=== PATIENT | male | born 1975 | race Caucasian/White ===

== ENCOUNTER 2016-10-19 23:26 | Emergency (ER) | payer OTHER ==
[~2016-10-19] VITALS: Ht 172.7 cm; Wt 99.8 kg
[~2016-10-19 23:26] MED LIST: ATARAX,VISTARIL50 MG PO; ATARAX25 MG PO; BACTRIM DS 8001 TA1 PO; CARBIDOPA/LEVOD1 TA1 PO; CEPHALEXIN500 M1 PO; FLEXERIL10 MG PO; HYDROCODONE BIT1 T11 PO; LEVAQUIN750 M1 PO; METHOCARBAMOL750 M1 PO; NAPROSYN500 MG PO; NKHM; NORCO 325 MG-101 TAB PO; OMNICEF300 MG PO; OXY IR5 MG PO; PREDNISONE10 MG PO
[2016-10-20 00:43] LABS: BASO % 0.2 % (0.0-1.0); EOS % 0.2 % (1.0-4.0); HEMATOCRIT 46.3 % (42.0-52.0); HEMOGLOBIN 15.6 g/dl (14.0-18.0); IG # 0.1 10*3/uL (0.0-0.1); LYMPH # 1.5 10*3/uL (1.3-4.4); MEAN CELL VOLUME 91.1 fl (80.0-94.0); MEAN CORPUSCULAR HGB 30.7 pg (27.0-31.0); MEAN CORPUSCULAR HGB CONC 33.7 g/dl (33.0-37.0); MEAN PLATELET VOLUME 9.1 fl (9.6-12.3); MONO # 1.1 10*3/uL (0.1-1.0); MONO % 6.3 % (3.0-9.0); NEUT # 13.9 10*3/uL (2.3-7.9); NEUT % 83.6 % (47.0-73.0); PLATELET COUNT AUTOMATED 184 10*3/uL (130-400); RED BLOOD COUNT 5.08 10*6/uL (4.50-5.90); RED CELL DISTRI WIDTH 13.2 % (0-14.5); WHITE BLOOD COUNT 16.6 10*3/uL (4.8-10.8)
[2016-10-20 01:00] LABS: BUN 17 mg/dl (7-24); CARBON DIOXIDE 26 mmol/L (21-32); CHLORIDE 108 mmol/L (98-107); EST GLOM FILT AFRICAN AMERICAN > 60 ml/min; GLUCOSE 108 mg/dL (65-99); POTASSIUM 4.2 mmol/L (3.5-5.1); SODIUM 145 mmol/L (136-145); TROPONIN I < 0.015 ng/ml (<0.5)
== END 2016-10-20 01:07 | disposition home or self-care (01) ==
LOC: ED 23:26
PROVIDERS: Emergency Medicine Emergency Medical Services
DX: T40.1X1A Poisoning by heroin, accidental (unintentional), initial encounter (principal); F17.200 Nicotine dependence, unspecified, uncomplicated; F14.10 Cocaine abuse, uncomplicated; F11.10 Opioid abuse, uncomplicated; Z91.038 Other insect allergy status; Y92.9 Unspecified place or not applicable

== ENCOUNTER 2017-06-16 15:56 | Emergency (ER) | payer OTHER ==
[2017-06-16 16:29] LABS: BASO % 0.2 % (0.0-1.0); EOS # 0.1 10*3/uL (0.0-0.4); EOS % 1.3 % (1.0-4.0); HEMATOCRIT 40.6 % (42.0-52.0); HEMOGLOBIN 14.4 g/dl (14.0-18.0); LYMPH # 2.2 10*3/uL (1.3-4.4); LYMPH % 24.2 % (27.0-41.0); MEAN CELL VOLUME 88.8 fl (80.0-94.0); MEAN CORPUSCULAR HGB 31.5 pg (27.0-31.0); MEAN CORPUSCULAR HGB CONC 35.5 g/dl (33.0-37.0); MEAN PLATELET VOLUME 9.2 fl (9.6-12.3); MONO # 0.6 10*3/uL (0.1-1.0); MONO % 7.1 % (3.0-9.0); NEUT % 66.9 % (47.0-73.0); PLATELET COUNT AUTOMATED 157 10*3/uL (130-400); RED BLOOD COUNT 4.57 10*6/uL (4.50-5.90); RED CELL DISTRI WIDTH 13.2 % (0-14.5)
[2017-06-16 16:38] LABS: ACT PARTIAL THROMBO TIME 23.1 SECONDS (20.8-31.5)
[2017-06-16 17:06] LABS: ALBUMIN 3.6 gm/dl (3.1-4.5); ALKALINE PHOSPHATASE 80 U/L (45-117); BUN 13 mg/dl (7-24); CHLORIDE 103 mmol/L (98-107); CKMB 4.2 ng/ml (0.5-3.6); CPK 312 U/L (39-308); CREATININE 1.15 mg/dL (0.70-1.30); LIPASE 165 U/L (73-393); MAGNESIUM 1.9 mg/dL (1.5-2.1); POTASSIUM 3.2 mmol/L (3.5-5.1); SGOT/AST 41 IU/L (3-35); SGPT/ALT 71 U/L (12-78); SODIUM 135 mmol/L (136-145); TOTAL PROTEIN 7.2 gm/dL (6.4-8.2)
[2017-06-16 17:13] LABS: ETHYL ALCOHOL < 3.0 mg/dl (<3); TROPONIN I < 0.015 ng/ml (<0.045)
[2017-06-16 17:15] LABS: ACETAMINOPHEN (TYLENOL) < 2.0 ug/ml (10-30)
[2017-06-16 18:43] LABS: BILIRUBIN NEGATIVE (NEGATIVE); BLOOD NEGATIVE (NEGATIVE); CLARITY SL CLOUDY (CLEAR); COLOR YELLOW (YELLOW); GLUCOSE NEGATIVE (NEGATIVE); KETONE NEGATIVE (NEGATIVE); LEUKO ESTERASE NEGATIVE (NEGATIVE); NITRITE NEGATIVE (NEGATIVE); PH 5.5 (5.0-9.0); SPECIFIC GRAVITY >= 1.030 (1.005-1.030)
[2017-06-16 18:51] LABS: BACTERIA 1+
[2017-06-16 18:52] LABS: MUCOUS 1+; URINE AMPHETAMINES < 1000 (1000ng/ml); URINE BARBITURATES < 200 (200ng/ml); URINE BENZODIAZEPINES < 200 (200ng/ml); URINE CANNABINOIDS (THC) > 50 (50ng/ml); URINE COCAINE > 300 (300ng/ml); URINE METHADONE < 300 (300ng/ml); URINE OPIATES < 300 (300ng/ml)
[2017-06-16 18:53] LABS: URINE PHENCYCLIDINE < 25 (25ng/ml)
[2017-06-16] MEDS ORDERED: DUONEB 3 MG/3 ML3 M1 INH (21:06)
[2017-06-16] MEDS ORDERED: PROAIR HFA8.5 GM INH (21:14)
[2017-06-16] MEDS ORDERED: ZITHROMAX250 MG PO (21:14)
[2017-06-16] MEDS ORDERED: PREDNISONE20 M1 PO (21:15)
== END 2017-06-16 23:08 | disposition home or self-care (01) ==
LOC: ED 15:56
PROVIDERS: Emergency Medicine
DX: R41.82 Altered mental status, unspecified (principal); J44.1 Chronic obstructive pulmonary disease with (acute) exacerbation; F17.200 Nicotine dependence, unspecified, uncomplicated; F12.10 Cannabis abuse, uncomplicated; F14.10 Cocaine abuse, uncomplicated; Z91.030 Bee allergy status

== ENCOUNTER 2017-11-09 09:51 | Emergency (ER) | payer OTHER ==
[~2017-11-09] VITALS: Ht 175.2 cm; Wt 111.1 kg
[~2017-11-09 09:51] MED LIST changes: +DUONEB 3 MG/3 ML3 M1 INH; +PREDNISONE20 M1 PO; +PROAIR HFA8.5 GM INH; +ZITHROMAX250 MG PO
[2017-11-09 10:34] LABS: BASO % 0.2 % (0.0-1.0); EOS # 0.2 10*3/uL (0.0-0.4); EOS % 2.4 % (1.0-4.0); HEMATOCRIT 46.8 % (42.0-52.0); HEMOGLOBIN 16.4 g/dl (14.0-18.0); LYMPH # 1.6 10*3/uL (1.3-4.4); LYMPH % 18.9 % (27.0-41.0); MEAN CELL VOLUME 87.8 fl (80.0-94.0); MEAN CORPUSCULAR HGB 30.8 pg (27.0-31.0); MEAN PLATELET VOLUME 9.7 fl (9.6-12.3); MONO # 0.7 10*3/uL (0.1-1.0); MONO % 8.2 % (3.0-9.0); NEUT # 5.9 10*3/uL (2.3-7.9); NEUT % 69.9 % (47.0-73.0); PLATELET COUNT AUTOMATED 146 10*3/uL (130-400); RED BLOOD COUNT 5.33 10*6/uL (4.50-5.90); WHITE BLOOD COUNT 8.5 10*3/uL (4.8-10.8)
[2017-11-09 10:52] LABS: ALBUMIN 3.8 gm/dl (3.1-4.5); ALKALINE PHOSPHATASE 96 U/L (45-117); BUN 17 mg/dl (7-24); CHLORIDE 107 mmol/L (98-107); CREATININE 0.95 mg/dL (0.70-1.30); SGOT/AST 39 IU/L (3-35); SGPT/ALT 80 U/L (12-78); SODIUM 140 mmol/L (136-145); TOTAL PROTEIN 7.7 gm/dL (6.4-8.2)
[2017-11-09] MEDS ORDERED: PREDNISONE20 M1 PO ×2 (12:52→12:55)
[2017-11-09] MEDS ORDERED: PROVENTIL HFA6.7 GM INH (12:52)
[2017-11-09] MEDS ORDERED: ZITHROMAX250 MG PO (12:52)
== END 2017-11-09 13:07 | disposition home or self-care (01) ==
LOC: ED 09:51
PROVIDERS: Family Medicine
DX: J45.909 Unspecified asthma, uncomplicated (principal); F17.200 Nicotine dependence, unspecified, uncomplicated; Z91.030 Bee allergy status

== ENCOUNTER 2019-04-04 09:54 | Emergency (ER) | payer OTHER ==
[~2019-04-04 09:54] MED LIST changes: +FLONASE ALLERG9.9 ML NAS; +PREDNISONE50 MG PO; +PROVENTIL HFA6.7 GM INH; +SUDOGEST60 MG PO
== END 2019-04-04 11:19 ==
LOC: ED 09:54
DX: T40.1X1A Poisoning by heroin, accidental (unintentional), initial encounter (principal); R40.20 Unspecified coma; J44.9 Chronic obstructive pulmonary disease, unspecified; F17.200 Nicotine dependence, unspecified, uncomplicated; F11.10 Opioid abuse, uncomplicated; F14.10 Cocaine abuse, uncomplicated; F12.90 Cannabis use, unspecified, uncomplicated; Y92.89 Other specified places as the place of occurrence of the external cause

== ENCOUNTER 2020-08-20 02:30 | Emergency (ER) | payer OTHER ==
[~2020-08-20] VITALS: Ht 175.2 cm; Wt 111.1 kg
[2020-08-20] MEDS ORDERED: BENADRYL ALLERG25 M5 PO (02:41)
[2020-08-20] MEDS ORDERED: COMPLETE ALLERG25 M2 PO (05:18)
[2020-08-20] MEDS ORDERED: CIPRO500 MG PO (05:18)
[2020-08-20] MEDS ORDERED: Bactroban Oint22 GM T (05:18)
[2020-08-20] MEDS ORDERED: MEDROL DOSEPAK4 MG PO (05:18)
== END 2020-08-20 05:26 | disposition home or self-care (01) ==
LOC: ED 02:30
DX: T78.40XA Allergy, unspecified, initial encounter (principal); L73.9 Follicular disorder, unspecified; L01.00 Impetigo, unspecified; Z79.899 Other long term (current) drug therapy; F17.200 Nicotine dependence, unspecified, uncomplicated; X58.XXXA Exposure to other specified factors, initial encounter

== ENCOUNTER 2020-08-29 16:19 | Emergency (ER) | payer OTHER ==
[~2020-08-29] VITALS: Ht 175.2 cm; Wt 106.6 kg
[~2020-08-29 16:19] MED LIST changes: +BENADRYL ALLERG25 M5 PO; +Bactroban Oint22 GM T; +CIPRO500 MG PO; +COMPLETE ALLERG25 M2 PO; +MEDROL DOSEPAK4 MG PO
== END 2020-08-29 17:00 | disposition left against medical advice (07) ==
LOC: ED 16:19
DX: T78.40XA Allergy, unspecified, initial encounter (principal); Z53.21 Procedure and treatment not carried out due to patient leaving prior to being seen by health care provider; X58.XXXA Exposure to other specified factors, initial encounter

== ENCOUNTER 2021-05-08 21:10 | Emergency (ER) | payer OTHER ==
[~2021-05-08] VITALS: Ht 175.2 cm; Wt 106.6 kg
[2021-05-08 22:02] LABS: BASO % 0.3 % (0.0-1.0); EOS # 0.1 10*3/uL (0.0-0.4); EOS % 1.3 % (1.0-4.0); HEMATOCRIT 41.7 % (42.0-52.0); LYMPH # 1.8 10*3/uL (1.3-4.4); LYMPH % 17.2 % (27.0-41.0); MEAN CELL VOLUME 87.1 fl (80.0-94.0); MEAN CORPUSCULAR HGB 30.1 pg (27.0-31.0); MEAN CORPUSCULAR HGB CONC 34.5 g/dl (33.0-37.0); MEAN PLATELET VOLUME 9.1 fl (9.6-12.3); MONO # 0.7 10*3/uL (0.1-1.0); MONO % 6.8 % (3.0-9.0); NEUT # 7.7 10*3/uL (2.3-7.9); NEUT % 73.6 % (47.0-73.0); PLATELET COUNT AUTOMATED 225 10*3/uL (130-400); RED BLOOD COUNT 4.79 10*6/uL (4.50-5.90); RED CELL DISTRI WIDTH 12.7 % (0-14.5); WHITE BLOOD COUNT 10.5 10*3/uL (4.8-10.8)
[2021-05-08 22:22] LABS: ALBUMIN 3.6 gm/dl (3.1-4.5); ALKALINE PHOSPHATASE 83 U/L (45-117); BUN 20 mg/dl (7-24); CHLORIDE 107 mmol/L (98-107); CREATININE 1.18 mg/dL (0.70-1.30); POTASSIUM 3.5 mmol/L (3.5-5.1); SGOT/AST 31 IU/L (3-35); SGPT/ALT 48 U/L (12-78); SODIUM 140 mmol/L (136-145); TOTAL PROTEIN 7.3 gm/dL (6.4-8.2)
== END 2021-05-09 01:25 | disposition left against medical advice (07) ==
LOC: ED 21:10
PROVIDERS: Emergency Medicine
DX: T40.1X1A Poisoning by heroin, accidental (unintentional), initial encounter (principal); J44.9 Chronic obstructive pulmonary disease, unspecified; Y92.89 Other specified places as the place of occurrence of the external cause

== ENCOUNTER 2021-07-31 13:42 | Emergency (ER) | payer OTHER ==
[~2021-07-31] VITALS: Ht 182.8 cm; Wt 10.0 kg
[2021-07-31 14:11] LABS: HEMATOCRIT 41.2 % (42.0-52.0); MEAN CELL VOLUME 96.5 fl (80.0-94.0); MEAN CORPUSCULAR HGB CONC 31.1 g/dl (33.0-37.0); MEAN PLATELET VOLUME 9.7 fl (9.6-12.3); PLATELET COUNT AUTOMATED 228 10*3/uL (130-400); RED BLOOD COUNT 4.27 10*6/uL (4.50-5.90); RED CELL DISTRI WIDTH 12.9 % (0-14.5); WHITE BLOOD COUNT 11.9 10*3/uL (4.8-10.8)
[2021-07-31 14:19] LABS: ARTERIAL BLOOD GAS PO2 211.9 (80-90)
[2021-07-31 14:22] LABS: ARTERIAL BLOOD GAS PH 6.781 (7.35-7.45)
[2021-07-31 14:23] LABS: ABG BASE EXCESS -23.2 mmol/L (-2.0-2.0)
[2021-07-31 14:25] LABS: INTERNATIONAL NORM RATIO 1.1 (2.0-3.5)
[2021-07-31 14:29] LABS: BILIRUBIN Negative (Negative); BLOOD Negative (Negative); CLARITY Clear (Clear); COLOR Yellow (Yellow); GLUCOSE Negative (Negative); KETONE Negative (Negative); LEUKO ESTERASE Negative (Negative); NITRITE Negative (Negative)
[2021-07-31 14:32] LABS: ALBUMIN 2.7 gm/dl (3.1-4.5); CREATININE 1.98 mg/dL (0.70-1.30); POTASSIUM 3.6 mmol/L (3.5-5.1); TOTAL PROTEIN 5.9 gm/dL (6.4-8.2)
[2021-07-31 14:41] LABS: URINE AMPHETAMINES > 1000 (1000ng/ml); URINE BARBITURATES < 200 (200ng/ml); URINE BENZODIAZEPINES < 200 (200ng/ml); URINE CANNABINOIDS (THC) < 50 (50ng/ml); URINE COCAINE > 300 (300ng/ml); URINE METHADONE < 300 (300ng/ml); URINE OPIATES < 300 (300ng/ml)
[2021-07-31 14:42] LABS: ATYPICAL LYMPHS 1 % (0-0); BASOPHILS 1 % (0-1); BURR CELLS MODERATE; PLATELET SUFFICIENCY NORMAL (NORMAL); TOTAL CELLS COUNTED 100 #CELLS
[2021-07-31 14:42] LABS: URINE PHENCYCLIDINE < 25 (25ng/ml)
[2021-07-31 14:45] LABS: BACTERIA 2+; EPITHELIAL CELLS 0-2; MUCOUS 1+
== END 2021-07-31 23:42 ==
LOC: ED 13:42
PROVIDERS: Internal Medicine
DX: I46.9 Cardiac arrest, cause unspecified (principal)